=== PATIENT | female | born 1975 | race Caucasian/White ===

== ENCOUNTER 2020-12-02 14:27 | Emergency (ER) | payer SELFPAY ==
--- NOTE | ~2020-12-02 | US_ITS ---
EXAMINATION: US pelvic complete w TV DATE: 12/02/2020 16:34 INDICATION: Abnormal vaginal bleeding TECHNIQUE: Multiple transabdominal and endovaginal sonographic images of the pelvis were obtained. COMPARISON: None. FINDINGS: The uterus measures 8.1 x 5.4 x 7.4 cm. The endometrial complex measures 1.9 cm. The right ovary measures 4.9 x 2.2 x 2.1 cm. The left ovary measures 3.3 x 1.5 x 2.5 cm. There is normal vascul ar flow in the ovaries. There is no free fluid in the pelvis. IMPRESSION: 1. Endometrial thickening which may be due to hyperplasia, polyp, or malignancy. Endometrial sampling is recommended. Reviewed, dictated and finalized at location A. IMPRESSION: 1. Endometrial thickening which may be due to hyperplasia, polyp, or malignancy . Endometrial sampling is recommended.
[2020-12-02 14:31] VITALS: BP 136/97; PULSE 111; RESP 18; TEMP 36.9; O2SAT 100
[2020-12-02 14:49] LABS: Basophils Percent Auto 0.2 % (0.2-1.2); Eosinophils Percent Auto 0.5 % (0-4.4); Hematocrit 34.3 % (37.0-47.0); Hemoglobin 11.4 g/dL (12.0-15.0); Immature Granulocyte Absolute 0.01 K/mm3 (0.00-0.031); Immature Granulocyte Percent A 0.2 % (0-0.5); Lymphocytes Absolute Auto 1.38 K/mm3 (0.9-3.2); Lymphocytes Percent Auto 33.3 % (18.3-44.2); Mean Corpuscular HGB Conc 33.2 g/dl (32-36); Mean Corpuscular Hemoglobin 28.2 pg (26-34); Mean Corpuscular Volume 84.9 fl (80-100); Mean Platelet Volume 10.4 fl (7.4-10.4); Monocytes Absolute Auto 0.3 K/mm3 (0.1-0.6); Monocytes Percent Auto 7.5 % (2.6-8.5); Neutrophils Absolute Auto 2.4 K/mm3 (1.3-6.7); Neutrophils Percent Auto 58.3 % (45.5-73.1); Platelet Count Result 212 k/mm3 (150-375); Red Blood Count 4.04 M/mm3 (4.2-5.4); Red Cell Distribution Width 13.7 % (11.5-14.5); White Blood Count 4.1 K/mm3 (4.5-10.0)
[2020-12-02 15:08] VITALS: BP 152/90; PULSE 101; RESP 17; O2SAT 100
--- NOTE | 2020-12-02 15:21 | ED.GENADULT ---
HPI - General Adult General Chief complaint: Vaginal Bleeding Stated complaint: vaginal bleeding Time Seen by Provider: 12/02/20 15:06 Source: patient Mode of arrival: ambulatory Limitations: no limitations History of Present Illness HPI narrative: This is a 45 year old female who presents for evaluation of abnormal vaginal bleeding. She started her menstrual cycle 7 days ago. She reports initially she has mild cramping with spotting for 3 days. On Saturday, she develop vaginal bleeding more consistent with normal cycle. Today approximately 2 hours ago she developed heavy vaginal bleeding. She states she soaked 2 tampons and a pad over the past 2 hours. She passed a large blood clot. Her cycles normally last 5 day every 25 days. Her last menstrual cycle was november 10. She denies any new medications or changes. She is suppose to be seen at the [facility]'s [place] but she has not been seen since 2018 . She denies chest pain, sob, dizziness or lightheaded. Related Data Allergies Allergy/AdvReac Type Severity Reaction Status Date / Time No Known Allergies Allergy Unknown Unverified 05/29/18 13:47 NUTS Allergy Mild ITCHING,BLISTERS Uncoded 12/02/20 15:19 ON TONGUE Review of Systems Review of Systems: All systems reviewed & are unremarkable except as noted in HPI and below PMFSH Past Medical History Medical History (Updated 12/02/20 @ 17:15 by Raine Cannon MD) Patient denies medical problems Surgical History Surgical History (Updated 12/02/20 @ 15:25 by Raine Cannon MD) Hx of appendectomy Social History Social History (Updated 12/02/20 @ 15:26 by Raine Cannon MD) Smoking status: Former smoker Gender identity (if verbalized by the patient): Female Exam Const: General: no acute distress and alert Orientation/consciousness: patient oriented x3 Eyes: EOM: EOMs intact bilaterally Resp: Effort & Inspection: normal respiratory effort and no retractions Auscultation: clear to auscultation bilaterally Cardio: Rate: regular rate Rhythm: regular rhythm Heart sounds: no murmurs GI: GI Palp: Yes Soft to palpation, No Tenderness to palpation present (GI) and No Guarding due to palpation present (GI) Auscultation: normal bowel sounds : Speculum Exam - Cervix: Cervical os closed Bimanual Exam- Adnexa, other: No adnexal tenderness Other: small clot at cervix, once cleared no significant bleeding Skin: General skin exam: normal color Rashes: no rashes Neuro: General: patient oriented x3 and moves all extremities Course Reevaluation(s) Reevaluation #1: I discussed with patient's lab. I also discussed follow up and she was given return precautions. Date: 12/02/20 Time: 17:11 Consultations Consultation #1: I discussed case with Dr. barragan about patient history and ultrasound. She states patient can call the office on saturday morning to arrange for follow up . Date: 12/02/20 Time: 17:04 Vital Signs Vital signs: Vital Signs Temperature 98.4 F 12/02/20 14:31 Pulse Rate 111 H 12/02/20 14:31 Respiratory Rate 18 12/02/20 14:31 Blood Pressure 136/97 H 12/02/20 14:31 Pulse Oximetry 100 12/02/20 14:31 Temperature 98.4 F 12/02/20 14:31 Pulse Rate 77 12/02/20 17:33 Respiratory Rate 17 12/02/20 17:33 Blood Pressure 132/80 12/02/20 17:33 Pulse Oximetry 100 12/02/20 17:33 Medical Decision Making Vital Signs Vital Signs: Vital Signs Temperature 98.4 F 12/02/20 14:31 Pulse Rate 111 H 12/02/20 14:31 Respiratory Rate 18 12/02/20 14:31 Blood Pressure 136/97 H 12/02/20 14:31 Pulse Oximetry 100 12/02/20 14:31 Temperature 98.4 F 12/02/20 14:31 Pulse Rate 77 12/02/20 17:33 Respiratory Rate 17 12/02/20 17:33 Blood Pressure 132/80 12/02/20 17:33 Pulse Oximetry 100 12/02/20 17:33 Lab Data Lab results reviewed: Yes I reviewed the patient's lab results. Result diagrams: 12/02/20 14:41 Labs
[2020-12-02 15:41] VITALS: BP 118/82; BP 128/66; PULSE 77; PULSE 93
[2020-12-02 15:42] VITALS: BP 131/78; PULSE 91
--- NOTE | 2020-12-02 16:11 | PC.NURSE ---
Pt to US via stretcher at this time
[2020-12-02 16:40] VITALS: BP 120/82; PULSE 82; RESP 17; O2SAT 100
[2020-12-02 17:33] VITALS: BP 132/80; PULSE 77; RESP 17; O2SAT 100
== END 2020-12-02 17:35 | disposition home or self-care (01) ==
PROVIDERS: Emergency Medicine; Emergency Provider General Practice
DX: N93.9 Abnormal uterine and vaginal bleeding, unspecified (principal); Z87.891 Personal history of nicotine dependence
CPT/HCPCS: 36415; 76830; 76856; 81025; 85025; 99284

== ENCOUNTER 2022-05-02 07:48 | Outpatient (CLI) | payer BC, MEDICAID, SELFPAY ==
--- NOTE | ~2022-05-02 | MMUS_ITS ---
EXAMINATION: MM diagnostic mahnaz BI w jovanny, US breast BI complete HISTORY: Left breast lump TECHNIQUE: ML, MLO and CC full field and spot 3-D tomosynthesis images of both breasts were performed and synthetic 2-D images were generated. CAD analysis was submitted and interpreted. High resolution bilateral complete breast ultrasound including all 4 quadrants and subareolar area of each breast wa s performed. COMPARISON: None BREAST PARENCHYMAL COMPOSITION: The breasts are extremely dense, which lowers the sensitivity of mamm ography. FINDINGS: MAMMOGRAPHIC FINDINGS: Very dense stroma bilaterally, which may obscure masses. No malignant calcification, suspicious mass or architectural distortion is evident. ULTRASOUND: Right breast: No suspicious mass, shadowing or other significant sonographic abnormality is noted. Left breast: 12:00 6 cm from nipple: Parallel circumscribed hypoechoic 2.8 x 4.8 x 4.3 mm lesion without internal vascularity or suspicious shadowing 2:00 6 cm from nipple: Parallel circumscribed 2.5 x 5.6 x 5.2 mm hypoechoic lesion without internal v ascularity or suspicious shadowing IMPRESSION: 1. No mammographic evidence of malignancy 2. Routine annual mammographic screening is recommended BI-RADS Category 2: Benign finding(s). Reviewed, dictated and finalized at location A. IMPRESSION: 1. No mammographic evidence of malignancy 2. Routine annual mammographic screening is recommended BI-RADS Category 2: Benign finding(s).
== END 2022-05-02 07:49 ==
PROVIDERS: PCP Nurse Practitioner Obstetrics & Gynecology; Visit Provider Nurse Practitioner Obstetrics & Gynecology
DX: N63.20 Unspecified lump in the left breast, unspecified quadrant (principal); R21 Rash and other nonspecific skin eruption
CPT/HCPCS: 76641; 77062; 77066; G0279